=== PATIENT | male | born 1955 | race Caucasian/White ===

== ENCOUNTER 2018-05-06 11:17 | Inpatient (IN) | payer MEDICARE, OTHER ==
[2018-05-06] MEDS ORDERED: methylPREDNISolone SOD SUCC 125 MG/2 ML VIAL IVP ONE (11:21)
[2018-05-06] MEDS ORDERED: IPRATROPIUM/ALBUTEROL SULFATE 3 ML AMPUL.NEB NEB ONE ×2 (11:21→14:16)
[2018-05-06] MEDS ORDERED: FUROSEMIDE 40 MG/4 ML VIAL IVP ONE (11:26)
--- NOTE | 2018-05-06 11:32 | ED Physician Documentation ---
Dyspnea - HISTORIAN Historian: patient, paramedics - HPI Stated Complaint: shortness of breath Chief Complaint: Dyspnea Additional Information: Patient presents to ED via EMS from long-term with a 2 week history of malaise, weakness, productive cough and increasing shortness of breath. Patient has a history of COPD and schizophrenia. He wears 2-3 liters O2 daily. Duration: continues in ED Severity: moderate Exacerbated By: laying flat, coughing Associated Symptoms: chills, productive cough - ROS CONST: weakness EYES/ENT: none GI/: none NEURO/PSYCH: denies: headache MS/SKIN/LYMPH: none - PAST HX Lung Disease: COPD Cardiac Disease: CHF PE Risk Factors: none Surgeries/Procedures: none Allergies/Adverse Reactions: Allergies Allergy/AdvReac Type Severity Reaction Status Date / Time chlorpromazine Allergy Verified 05/06/18 12:01 [From Thorazine] ketorolac [From Toradol] Allergy Verified 05/06/18 12:01 loxapine [From Loxitane] Allergy Verified 05/06/18 12:01 Tetracyclines Allergy Verified 05/06/18 12:01 thioridazine [From Mellaril] Allergy Verified 05/06/18 12:01 thiothixene [From Navane] Allergy Verified 05/06/18 12:01 - SOCIAL HX Smoking History: cigarettes, greater than 1 pack/day Alcohol Use: none Drug Use: none - FAMILY HX Family History: none - VITAL SIGNS Vital Signs: Vital Signs Temp Pulse Resp BP Pulse Ox 142/92 06/09/14 12:30 - REVIEWED ASSESSMENTS Nursing Assessment Reviewed: Yes Vitals Reviewed: Yes Progress - Progress Progress: 1145 Discussed admission with [facility], no ICU beds available. Discussed with patient, [facility] He would prefer to stay here. Will try to improve respiratory status to admit here. If not, we will have to transfer to higher level of care. 1327 Patient currently on 12 liters oxygen with SaO2 99 % will try to wean O2. 1423 Patient on 6 liters nasal cannula with SaO2 96%. Breathing is much improved. Scattered wheezing bilaterally, will give another breathing treatment. [address] Rodriguez, he agrees with admission. Blood cultures pending - EKG/XRAY/CT Comments: sinus tachycardia 106 bpm ED Results Lab/Radiology - Radiology Radiology Impressions: Report Submission Date: May 06, 2018 11:43:25 AM CDT Patient Study Name: HIWOT MILLER Date: May 06, 2018 11:18:00 AM CDT Modality Type: DX Gender: M Description: CHEST 1VIEW : 55 Institution: [facility] Physician: LYNNE CABRALES AP chest Clinical history: Severe shortness of breath today. Findings: Examination of the chest and single AP view demonstrates pulmonary vascular congestion with confluent infiltrates perihilar regions suggesting edema. Chuck B-lines are seen in the lung bases. Cardiac silhouette is prominent. Monitor leads superimpose the chest. Impression: 1. Pulmonary edema and vascular congestion. 2. Left ventricular prominence. Electronically signed on May 06, 2018 11:43:25 AM CDT by: Gino Mary - Orders Orders: ED Orders Category Date Time Status Place IV Lock 1T Care 05/06/18 11:19 Ordered CHEST 1VIEW [RAD] Stat Exams 05/06/18 Ordered ABG WITH COOX Stat Lab 05/06/18 Uncollected BLOOD CULTURE Stat Lab 05/06/18 Ordered BNP [NT-proBNP] Stat Lab 05/06/18 Ordered CBC/PLATELET/DIFF Routine Lab 05/06/18 Ordered CMP Routine Lab 05/06/18 Ordered LACTATE Stat Lab 05/06/18 Ordered TROPONIN I (cTnI) Stat Lab 05/06/18 Ordered Furosemide [Lasix] Med 05/06/18 11:26 Once 40 mg IVP NOW ONE Ipratropium/Albuterol Sulfate [Duoneb] Med 05/06/18 11:21 Once 3 ml NEB NOW ONE methylPREDNISolone SOD SUCC [Solu-MEDROL] Med 05/06/18 11:21 Once 125 mg IVP NOW ONE EKG WITH COMPARISON Stat Ther 05/06/18 Ordered Dyspnea Physical Exam - EXAM General Appearance: moderate distress (tripod position), anxious EENT: DEMETRIUS Respiratory: prolonged expirations, accessory muscle use, decreased air move ment. No: speaks full sentences CVS: tachycardia Abdomen: non-tender. No: tenderness Skin: diaphoresis, pallor Extremities: no edema (+2 pitting lower extremity edema bilaterally to knee) Neuro/Psych: oriented x3, motor nml Discharge Clincal Impression: Acute on chronic respiratory failure Qualifiers: Respiratory failure complication: hypoxia and hypercapnia Qualified Code(s): J 96.21 - Acute and chronic respiratory failure with hypoxia Sepsis Qualifiers: Sepsis type: sepsis due to unspecified organism Qualified Code(s): A41.9 - Sepsis, unspecified organism Bilateral pneumonia Qualifiers: Pneumonia type: due to other aerobic Gram-negative bacteria Lung location: unspecified part of lung Qualified Code(s): J15.6 - Pneumonia due to other Gram- negative bacteria Acute heart failure Qualifiers: Heart failure type: unspecified Qualified Code(s): I50.9 - Heart failure, unspecified Condition: Fair Disposition: ADMITTED INPATIENT Decision to Admit: [id number] Date of Decison to Admit: 05/06/18 Decision Time: 14:30
[2018-05-06 11:48] LABS: eGFR (Non-African) > 60
[2018-05-06 11:49] LABS: MEAN CORPUSCULAR HEMOGLOBIN 30.5 pg (28.0-34.0)
[2018-05-06 11:52] LABS: MONOCYTES % 6 % (0-11); SEGMENTED NEUTROPHILS % 82 % (39-79)
[2018-05-06] MEDS ORDERED: LEVOFLOXACIN IN DEXTROSE 5 % 750 MG/150 ML PIGGYBACK IV ONE (11:52)
[2018-05-06] MEDS ORDERED: VANCOMYCIN HCL 1.25 GM in 0.9 % SODIUM CHLORIDE 500 ML IV ONE (11:52)
--- NOTE | 2018-05-06 12:01 | Diagnostic Imaging Report ---
LYNNE CABRALES [facility] [address] [facility] [address] [place], [place]. [address] Report Submission Date: May 06, 2018 11:43:25 AM CDT Patient Study Name: HIWOT MILLER Date: May 06, 2018 11:18:00 AM CDT Modality Type: DX Gender: M Description: CHEST 1VIEW : 55 Institution: [facility] Physician: LYNNE CABRALES AP chest Clinical history: Severe shortness of breath today. Findings: Examination of the chest and single AP view demonstrates pulmonary vascular congestion with confluent infiltrates perihilar regions suggesting edema. Chuck B-lines are seen in the lung bases. Cardiac silhouette is prominent. Monitor leads superimpose the chest. Impression: 1. Pulmonary edema and vascular congestion. 2. Left ventricular prominence. Electronically signed on May 06, 2018 11:43:25 AM CDT by: Gino WHITESIDE
[2018-05-06 15:26] VITALS: BMI 34.2
[2018-05-06] MEDS ORDERED: MAG HYDROX/ALUMINUM HYD/SIMETH 30 ML UDC PO PRN (15:52)
[2018-05-06] MEDS ORDERED: DOCUSATE SODIUM 100 MG CAPSULE PO PRN (15:52)
[2018-05-06] MEDS ORDERED: ONDANSETRON HCL/PF 4 MG/ 2ML VIAL IVP PRN (15:52)
[2018-05-06] MEDS ORDERED: OLANZapine 5 MG TABLET PO PRN (15:52)
[2018-05-06] MEDS ORDERED: BISACODYL 5 MG TABLET.DR PO PRN (15:52)
[2018-05-06] MEDS ORDERED: VANCOMYCIN PHARMACY TO DOSE IV SCH (16:00)
[2018-05-06] MEDS: VANCOMYCIN HCL 1 GM in 0.9 % SODIUM CHLORIDE 250 ML IV SCH ×2 (16:32→17:44)
[2018-05-06] MEDS: IPRATROPIUM/ALBUTEROL SULFATE 3 ML AMPUL.NEB NEB SCH ×2 (17:18→20:12)
[2018-05-06] MEDS: ENOXAPARIN SODIUM 40 MG/0.4 ML DISP.SYRIN SQ SCH (17:18)
[2018-05-06] MEDS: INSULIN REGULAR, HUMAN 100 UNIT/ML 3ML VIAL SQ SCH ×2 (17:20→20:20)
[2018-05-06] MEDS ORDERED: 0.9 % SODIUM CHLORIDE 250 ML IV ONE (17:29)
[2018-05-06] MEDS ORDERED: VANCOMYCIN HCL 1 GM VIAL IV ONE (17:30)
[2018-05-06] MEDS: HYDROcodone /APAP 5/325 1 EACH TABLET PO PRN (17:44)
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
[2018-05-06] MEDS: FUROSEMIDE 40 MG TABLET PO SCH (20:02)
[2018-05-06] MEDS: GABAPENTIN 300 MG CAPSULE PO SCH (20:13)
[2018-05-06] MEDS: BUDESONIDE 0.5MG/2ML AMPUL.NEB NEB SCH (20:13)
[2018-05-06] MEDS: CYCLOBENZAPRINE HCL 10 MG TABLET PO SCH (20:13)
[2018-05-06] MEDS: QUEtiapine FUMARATE 25 MG TABLET PO SCH ×2 (20:14)
[2018-05-06] MEDS: TEMAZEPAM 15 MG CAP PO SCH (20:14)
[2018-05-06] MEDS: methylPREDNISolone SOD SUCC 40 MG/ML VIAL IVP SCH (20:15)
[2018-05-06] MEDS: MONTELUKAST SODIUM 10 MG TABLET PO SCH (20:15)
[2018-05-06] MEDS: CARBAMAZEPINE 200 MG TABLET PO SCH (20:15)
[2018-05-06] MEDS: NICOTINE 14mg PATCH.TD24 TD SCH (20:52)
[2018-05-06] MEDS ORDERED: Non-Formulary 1 EACH PO SCH (21:00)
[2018-05-07] MEDS: HYDROcodone /APAP 5/325 1 EACH TABLET PO PRN ×3 (00:05→21:30)
[2018-05-07] MEDS ORDERED: 0.9 % SODIUM CHLORIDE 250 ML IV ONE (04:30)
[2018-05-07] MEDS ORDERED: VANCOMYCIN HCL 1 GM VIAL IV ONE (04:31)
[2018-05-07] MEDS: VANCOMYCIN HCL 1 GM in 0.9 % SODIUM CHLORIDE 250 ML IV SCH ×3 (04:41→21:15)
[2018-05-07 06:21] LABS: BASOPHILS % 0.9 (0.0-1.5); EOSINOPHILS % 0.9 % (0.0-6.8); MEAN CORPUSCULAR HEMOGLOBIN 30.2 pg (28.0-34.0); NEUTROPHILS # 13.3 # k/uL (1.4-7.7)
[2018-05-07] MEDS: FUROSEMIDE 40 MG TABLET PO SCH ×2 (06:38→14:54)
[2018-05-07] MEDS: methylPREDNISolone SOD SUCC 40 MG/ML VIAL IVP SCH ×3 (06:38→20:22)
[2018-05-07] MEDS: LEVOTHYROXINE SODIUM 88 MCG TABLET PO SCH (06:39)
[2018-05-07] MEDS: PANTOPRAZOLE SODIUM 40 MG TABLET.DR PO SCH (06:39)
[2018-05-07 06:50] LABS: eGFR (Non-African) > 60
[2018-05-07] MEDS: INSULIN REGULAR, HUMAN 100 UNIT/ML 3ML VIAL SQ SCH ×4 (07:23→21:29)
[2018-05-07 08:15] LABS: PH BG VENOUS 7.29 (7.32-7.43)
[2018-05-07] MEDS: LEVOFLOXACIN IN DEXTROSE 5 % 750 MG/150 ML PIGGYBACK IV SCH (08:50)
[2018-05-07] MEDS: ENOXAPARIN SODIUM 40 MG/0.4 ML DISP.SYRIN SQ SCH (08:51)
[2018-05-07] MEDS: PROPRANOLOL HCL 20 MG TABLET PO SCH ×3 (08:51→17:27)
[2018-05-07] MEDS: LISINOPRIL 10 MG TABLET PO SCH (08:51)
[2018-05-07] MEDS: NICOTINE 14mg PATCH.TD24 TD SCH (08:51)
[2018-05-07] MEDS: QUEtiapine FUMARATE 25 MG TABLET PO SCH ×3 (08:52→21:35)
[2018-05-07] MEDS: NAPROXEN 250 MG TABLET PO SCH ×2 (08:52→17:27)
[2018-05-07] MEDS: CARBAMAZEPINE 200 MG TABLET PO SCH ×2 (08:53→21:31)
[2018-05-07] MEDS: GABAPENTIN 300 MG CAPSULE PO SCH ×2 (08:53→21:29)
[2018-05-07] MEDS: BUDESONIDE 0.5MG/2ML AMPUL.NEB NEB SCH ×2 (09:35→20:26)
[2018-05-07] MEDS: IPRATROPIUM/ALBUTEROL SULFATE 3 ML AMPUL.NEB NEB SCH ×4 (09:35→20:33)
[2018-05-07] MEDS ORDERED: SODIUM CHLORIDE 0.9% 1 NASAL SPRAY BTL IEN PRN (18:06)
--- NOTE | 2018-05-07 19:12 | Inpatient Progress Note ---
Subjective - Required Recertification Statement I anticipate X number of days because-include discharge plan: 1 - Review of Systems Events since last encounter: Noe is feeling a little bit better today. He is not coughing quite as much. He is afebrile. His oxygen saturations are improved. He has not ambulated very much. He was encouraged by a visit from his sister today. General: Denies: Chills, Night Sweats HEENT: Denies: Head Aches Pulmonary: Dyspnea, Cough. Denies: Pleuritic Chest Pain Cardiovascular: Denies: Chest Pain Gastrointestinal: Denies: Nausea, Vomiting, Hematochezia Genitourinary: Denies: Dysuria, Frequency Musculoskeletal: Denies: Neck Pain, Shoulder Pain Neurological: Weakness, Change in Speech, Confusion Objective - Exam Vitals and I&O: Vital Signs Temp 98.2 F 05/07/18 18:00 Pulse 86 05/07/18 18:00 Resp 20 05/07/18 18:00 BP 153/92 05/07/18 18:00 Pulse Ox 96 05/07/18 18:00 Intake & Output 05/06/18 05/07/18 05/07/18 23:59 11:59 23:59 Intake Total 1200 720 Output Total 3050 3200 400 Balance -3049 -1999 320 Weight 102.058 kg Intake: Oral 1200 720 Output: Urine 3050 3200 400 Other: Voiding Method Urinal Urinal Urinal # Voids 3 2 # Bowel Movements 0 0 General: Alert, Oriented to Person, Oriented to Time, Discheveled HEENT: Atraumatic, PERRLA, EOMI Neck: Supple Lungs: Wheezes, Rales, Rhonchi, Stridor Cardiovascular: Regular rate Abdomen: Normal bowel sounds, Soft, No tenderness Extremities: No: No edema (3+ edema) Skin: Normal, [place], Warm Neurological: Normal speech Psych/Mental Status: Mental status NL. No: Intact Judgment - Results Results: Laboratory Results WBC 16.50 K/ul (4.00-12.00) H 05/07/18 06:00 RBC 4.66 M/ul (3.90-5.20) 05/07/18 06:00 Hgb 14.1 g/dL (12.0-18.0) 05/07/18 06:00 Hct 43.1 % (37.0-53.0) 05/07/18 06:00 MCV 93.0 fl (80.0-100.0) 05/07/18 06:00 MCH 30.2 pg (28.0-34.0) 05/07/18 06:00 MCHC 32.7 g/dL (30.0-36.0) 05/07/18 06:00 RDW 13.2 % (11.3-14.3) 05/07/18 06:00 Plt Count 280 K/mm3 (130-400) 05/07/18 06:00 Neut % (Auto) 80.4 % (39.0-79.0) H 05/07/18 06:00 Lymph % (Auto) 11.8 % (16.0-50.0) L 05/07/18 06:00 [place] % (Auto) 6.0 % (0.0-11.0) 05/07/18 06:00 Eos % (Auto) 0.9 % (0.0-6.8) 05/07/18 06:00 Baso % (Auto) 0.9 (0.0-1.5) 05/07/18 06:00 Neut # (Auto) 13.3 # k/uL (1.4-7.7) H 05/07/18 06:00 Lymph # (Auto) 1.9 # k/uL (0.6-4.0) 05/07/18 06:00 [place] # (Auto) 1.0 # k/uL (0.0-0.9) H 05/07/18 06:00 Eos # (Auto) 0.2 # k/uL (0.0-0.6) 05/07/18 06:00 Baso # (Auto) 0.2 # k/uL (0.0-0.5) 05/07/18 06:00 Seg Neutrophils % 82 % (39-79) H 05/06/18 11:25 Lymphocytes % 12 % (16-50) L 05/06/18 11:25 Monocytes % 6 % (0-11) 05/06/18 11:25 VBG pH 7.29 (7.32-7.43) L 05/06/18 11:45 VBG pCO2 at Pat Temp 53 mmHG (40-60) 05/06/18 11:45 VBG pO2 at Pat Temp 45 mmHg (30-55) 05/06/18 11:45 VBG HCO3 23 mmol/L (22-27) 05/06/18 11:45 VBG O2 Sat (Calc) 79 % (40-85) 05/06/18 11:45 VBG Base Excess -2 mmol/L (-2- +2) 05/06/18 11:45 Sodium 135 mmol/L (136-145) L 05/07/18 06:00 Potassium 4.0 mmol/L (3.5-5.1) 05/07/18 06:00 Chloride 95 mmol/L (98-107) L 05/07/18 06:00 Carbon Dioxide 28 mmol/L (22-30) 05/07/18 06:00 BUN 18 mg/dL (9-20) 05/07/18 06:00 Creatinine 0.73 mg/dL (0.66-1.25) 05/07/18 06:00 Estimated Creat Clear 149 05/07/18 06:00 Est GFR ( Amer) > 60 (60-) 05/07/18 06:00 Est GFR (Non-Af Amer) > 60 (60-) 05/07/18 06:00 Glucose 113 mg/dL (74-106) H 05/07/18 06:00 Lactate 1.8 U/L (0.7-2.1) 05/06/18 14:00 Calcium 8.5 mg/dL (8.4-10.2) 05/07/18 06:00 Total Bilirubin 0.3 mg/dL (0.2-1.3) 05/06/18 11:25 AST 59 U/L (15-46) H 05/06/18 11:25 ALT 42 U/L (13-69) 05/06/18 11:25 Alkaline Phosphatase 142 U/L (38-126) H 05/06/18 11:25 Troponin I 0.06 ng/mL (0.03-0.06) 05/06/18 11:25 NT-Pro-B Natriuret Pep 1969.2 pg/mL (15.0-125.0) H 05/06/18 11:25 Total Protein 10.6 g/dL (6.3-8.2) H 05/06/18 11:25 Albumin 5.8 g/dL (3.5-5.0) H 05/06/18 11:25 Assessment/Plan - Assessment/Plan (1) Acute heart failure Status: Acute Current Visit: Yes Qualifiers: Heart failure type: systolic Qualified Code(s): I50.21 - Acute systolic (congestive) heart failure Assessment: Improved (2) Acute on chronic respiratory failure Status: Acute Current Visit: Yes Qualifiers: Respiratory failure complication: hypoxia and hypercapnia Qualified Code(s): J96.21 - Acute and chronic respiratory failure with hypoxia; J96.22 - Acute and chronic respiratory failure with hypercapnia Assessment: Chronic and multifactorial. Plan: Continue current antibiotic therapy, await blood cultures, continue supplemental oxygen, nebulizer treatments (3) Schizophrenia Status: Acute Current Visit: Yes Assessment: Continue current psychiatric medications (4) Anxiety Status: Acute Current Visit: Yes Assessment: Continue current doses of Seroquel (5) Depression Status: Acute Current Visit: Yes Qualifiers: Depression Type: major depressive disorder Major depression recurrence: recurrent Active/Remission status: currently active Major depression episode severity: severe Psychotic features: with psychotic features Qualified Code(s): F33.3 - Major depressive disorder, recurrent, severe with psychotic symptoms (6) Hypertension Status: Acute Current Visit: Yes Qualifiers: Hypertension type: essential hypertension Qualified Code(s): I10 - Essent ial (primary) hypertension (7) Hyperlipidemia Status: Acute Current Visit: Yes Qualifiers: Hyperlipidemia type: pure hypercholesterolemia Qualified Code(s): E78.00 - Pure hypercholesterolemia, unspecified; E78.0 - Pure hypercholesterolemia (8) Bilateral pneumonia Status: Acute Current Visit: Yes Qualifiers: Pneumonia type: due to other aerobic Gram-negative bacteria Lung location: unspecified part of lung Qualified Code(s): J15.6 - Pneumonia due to other Gram-negative bacteria (9) Sepsis Status: Acute Current Visit: Yes Qualifiers: Sepsis type: sepsis due to unspecified organism Qualified Code(s): A41.9 - Sepsis, unspecified organism
[2018-05-07] MEDS: CYCLOBENZAPRINE HCL 10 MG TABLET PO SCH (21:29)
[2018-05-07] MEDS: TEMAZEPAM 15 MG CAP PO SCH (21:30)
[2018-05-07] MEDS: MONTELUKAST SODIUM 10 MG TABLET PO SCH (21:31)
[2018-05-07] MEDS: PATIENT OWN MED 1 EACH EACH PO SCH (21:33)
[2018-05-08] MEDS: methylPREDNISolone SOD SUCC 40 MG/ML VIAL IVP SCH ×3 (05:05→21:54)
[2018-05-08] MEDS: PANTOPRAZOLE SODIUM 40 MG TABLET.DR PO SCH (05:10)
[2018-05-08] MEDS: LEVOTHYROXINE SODIUM 88 MCG TABLET PO SCH (05:10)
[2018-05-08] MEDS: FUROSEMIDE 40 MG TABLET PO SCH ×2 (05:10→14:29)
[2018-05-08] MEDS: VANCOMYCIN HCL 1 GM in 0.9 % SODIUM CHLORIDE 250 ML IV SCH ×3 (05:10→22:01)
[2018-05-08] MEDS: HYDROcodone /APAP 5/325 1 EACH TABLET PO PRN ×2 (06:29→13:25)
[2018-05-08 07:03] LABS: MEAN CORPUSCULAR HEMOGLOBIN 30.3 pg (28.0-34.0)
[2018-05-08 07:14] LABS: eGFR (Non-African) > 60
--- NOTE | 2018-05-08 07:47 | Diagnostic Imaging Report ---
CLARE LAST [facility] [address] [facility] [address] [place], [place]. [address] Report Submission Date: May 08, 2018 7:30:56 AM CDT Patient Study Name: HIWOT MILLER Date: May 08, 2018 6:47:59 AM CDT Modality Type: DX Gender: M Description: CHEST 2VIEW : 55 Institution: [facility] Physician: CLARE LAST PA and lateral chest History: Cough PA and lateral chest dated May 08, 2018 is compared with May 06, 2018. Heart is borderline in size. Diffusely prominent interstitial markings are present bilaterally which may represent mild pulmonary venous congestion versus chronic interstitial lung disease. There is a small region of asymmetric atelectasis and/or infiltrate at the right lung base. There is no pleural effusion. Impression: Borderline heart size. Prominent interstitial marking diffusely bilaterally as described. Small region of atelectasis and/or infiltrate at the right lung base. Electronically signed on May 08, 2018 7:30:56 AM CDT by: Wandy WHITESIDE
[2018-05-08] MEDS: INSULIN REGULAR, HUMAN 100 UNIT/ML 3ML VIAL SQ SCH ×4 (07:51→21:54)
[2018-05-08] MEDS: NAPROXEN 250 MG TABLET PO SCH ×2 (07:57→18:04)
[2018-05-08] MEDS: NICOTINE 14mg PATCH.TD24 TD SCH (08:01)
[2018-05-08] MEDS: ENOXAPARIN SODIUM 40 MG/0.4 ML DISP.SYRIN SQ SCH (08:01)
[2018-05-08] MEDS: GABAPENTIN 300 MG CAPSULE PO SCH ×2 (08:01→21:23)
[2018-05-08] MEDS: PROPRANOLOL HCL 20 MG TABLET PO SCH ×3 (08:01→18:04)
[2018-05-08] MEDS: QUEtiapine FUMARATE 25 MG TABLET PO SCH ×3 (08:02→21:24)
[2018-05-08] MEDS: CARBAMAZEPINE 200 MG TABLET PO SCH ×2 (08:02→21:25)
[2018-05-08] MEDS: LISINOPRIL 10 MG TABLET PO SCH (08:06)
[2018-05-08] MEDS: IPRATROPIUM/ALBUTEROL SULFATE 3 ML AMPUL.NEB NEB SCH ×4 (09:00→21:57)
[2018-05-08] MEDS: BUDESONIDE 0.5MG/2ML AMPUL.NEB NEB SCH ×2 (09:00→21:55)
[2018-05-08] MEDS: LEVOFLOXACIN IN DEXTROSE 5 % 750 MG/150 ML PIGGYBACK IV SCH (09:24)
--- NOTE | 2018-05-08 12:01 | Inpatient Progress Note ---
Subjective - Required Recertification Statement I anticipate X number of days because-include discharge plan: 2 - Review of Systems Events since last encounter: Noe is still coughing quite a bit. His white count is down but only minimally and he remains on 6 LNC. He is spending most of his time on the edge of his bed. He is diuresing well. General: Chills, Night Sweats, Fatigue, Malaise HEENT: Denies: Head Aches Pulmonary: Dyspnea, Cough. Denies: Pleuritic Chest Pain Cardiovascular: Denies: Chest Pain, Palpitations Gastrointestinal: Denies: Nausea, Vomiting Genitourinary: Denies: Dysuria Musculoskeletal: Denies: Neck Pain, Shoulder Pain Neurological: Weakness. Denies: Change in Speech, Confusion Objective - Exam Vitals and I&O: Vital Signs Temp 97.5 F L 05/08/18 09:25 Pulse 90 05/08/18 09:25 Resp 20 05/08/18 09:25 BP 159/81 05/08/18 09:25 Pulse Ox 98 05/08/18 09:25 Intake & Output 05/07/18 05/07/18 05/08/18 11:59 23:59 11:59 Intake Total 1200 720 840 Output Total 3200 400 1600 Balance -1999 320 -760 Intake: Oral 1200 720 840 Output: Urine 3200 400 1600 Other: Voiding Method Urinal Urinal Urinal # Voids 2 2 # Bowel Movements 0 General: Alert, Oriented to Person, Oriented to Place, Oriented to Time HEENT: Atraumatic, PERRLA Neck: Supple, No JVD Lungs: Wheezes, Rales, Rhonchi, Prolonged Expiration Cardiovascular: Regular rate Abdomen: Normal bowel sounds, Soft, No tenderness, No hepatospenomegaly Extremities: No: No edema (3+ BLE) Neurological: Normal speech Psych/Mental Status: Mental status NL (flat) - Results Results: Laboratory Results WBC 16.10 K/ul (4.00-12.00) H 05/08/18 06:00 RBC 4.18 M/ul (3.90-5.20) 05/08/18 06:00 Hgb 12.7 g/dL (12.0-18.0) 05/08/18 06:00 Hct 38.6 % (37.0-53.0) 05/08/18 06:00 MCV 92.0 fl (80.0-100.0) 05/08/18 06:00 MCH 30.3 pg (28.0-34.0) 05/08/18 06:00 MCHC 32.8 g/dL (30.0-36.0) 05/08/18 06:00 RDW 12.8 % (11.3-14.3) 05/08/18 06:00 Plt Count 258 K/mm3 (130-400) 05/08/18 06:00 Neut % (Auto) 80.4 % (39.0-79.0) H 05/07/18 06:00 Lymph % (Auto) 11.8 % (16.0-50.0) L 05/07/18 06:00 [place] % (Auto) 6.0 % (0.0-11.0) 05/07/18 06:00 Eos % (Auto) 0.9 % (0.0-6.8) 05/07/18 06:00 Baso % (Auto) 0.9 (0.0-1.5) 05/07/18 06:00 Neut # (Auto) 13.3 # k/uL (1.4-7.7) H 05/07/18 06:00 Lymph # (Auto) 1.9 # k/uL (0.6-4.0) 05/07/18 06:00 [place] # (Auto) 1.0 # k/uL (0.0-0.9) H 05/07/18 06:00 Eos # (Auto) 0.2 # k/uL (0.0-0.6) 05/07/18 06:00 Baso # (Auto) 0.2 # k/uL (0.0-0.5) 05/07/18 06:00 Seg Neutrophils % 82 % (39-79) H 05/06/18 11:25 Lymphocytes % 12 % (16-50) L 05/06/18 11:25 Monocytes % 6 % (0-11) 05/06/18 11:25 VBG pH 7.29 (7.32-7.43) L 05/06/18 11:45 VBG pCO2 at Pat Temp 53 mmHG (40-60) 05/06/18 11:45 VBG pO2 at Pat Temp 45 mmHg (30-55) 05/06/18 11:45 VBG HCO3 23 mmol/L (22-27) 05/06/18 11:45 VBG O2 Sat (Calc) 79 % (40-85) 05/06/18 11:45 VBG Base Excess -2 mmol/L (-2- +2) 05/06/18 11:45 Sodium 133 mmol/L (136-145) L 05/08/18 06:00 Potassium 4.3 mmol/L (3.5-5.1) 05/08/18 06:00 Chloride 93 mmol/L (98-107) L 05/08/18 06:00 Carbon Dioxide 30 mmol/L (22-30) 05/08/18 06:00 BUN 28 mg/dL (9-20) H 05/08/18 06:00 Creatinine 0.73 mg/dL (0.66-1.25) 05/08/18 06:00 Estimated Creat Clear 149 05/08/18 06:00 Est GFR ( Amer) > 60 (60-) 05/08/18 06:00 Est GFR (Non-Af Amer) > 60 (60-) 05/08/18 06:00 Glucose 114 mg/dL (74-106) H 05/08/18 06:00 Lactate 1.8 U/L (0.7-2.1) 05/06/18 14:00 Calcium 8.0 mg/dL (8.4-10.2) L 05/08/18 06:00 Total Bilirubin < 0.1 mg/dL (0.2-1.3) L 05/08/18 06:00 AST 36 U/L (15-46) 05/08/18 06:00 ALT 43 U/L (13-69) 05/08/18 06:00 Alkaline Phosphatase 75 U/L (38-126) 05/08/18 06:00 Troponin I 0.06 ng/mL (0.03-0.06) 05/06/18 11:25 NT-Pro-B Natriuret Pep 1969.2 pg/mL (15.0-125.0) H 05/06/18 11:25 Total Protein 6.3 g/dL (6.3-8.2) 05/08/18 06:00 Albumin 3.3 g/dL (3.5-5.0) L 05/08/18 06:00 Assessment/Plan - Assessment/Plan (1) Acute heart failure Status: Acute Current Visit: Yes Qualifiers: Heart failure type: systolic Qualified Code(s): I50.21 - Acute systolic (congestive) heart failure Assessment: Still diuresing well (2) Acute on chronic respiratory failure Status: Acute Current Visit: Yes Qualifiers: Respiratory failure complication: hypoxia and hypercapnia Qualified Code(s): J96.21 - Acute and chronic respiratory failure with hypoxia; J96.22 - Acute and chronic respiratory failure with hypercapnia Assessment: Continue nebulizer treatments, steroids (3) Schizophrenia Status: Acute Current Visit: Yes Assessment: Chronic, stable (4) Anxiety Status: Acute Current Visit: Yes Assessment: Continue current medications (5) Depression Status: Acute Current Visit: Yes Qualifiers: Depression Type: major depressive disorder Major depression recurrence: recurrent Active/Remission status: currently active Major depression episode severity: severe Psychotic features: with psychotic features Qualified Code(s): F33.3 - Major depressive disorder, recurrent, severe with psychotic symptoms Assessment: Stable (6) Hypertension Status: Acute Current Visit: Yes Qualifiers: Hypertension type: essential hypertension Qualified Code(s): I10 - Essential (primary) hypertension Assessment: Well controlled (7) Hyperlipidemia Status: Acute Current Visit: Yes Qualifiers: Hyperlipidemia type: pure hypercholesterolemia Qualified Code(s): E78.00 - Pure hypercholesterolemia, unspecified; E78.0 - Pure hypercholesterolemia (8) Bilateral pneumonia Status: Acute Current Visit: Yes Qualifiers: Pneumonia type: due to other aerobic Gram-negative bacteria Lung location: unspecified part of lung Qualified Code(s): J15.6 - Pneumonia due to other Gram-negative bacteria Assessment: Continue current antibiotics Plan: Will have PT eval today to see if we can get him up and walking. (9) Sepsis Status: Acute Current Visit: Yes Qualifiers: Sepsis type: sepsis due to unspecified organism Qualified Code(s): A41.9 - Sepsis, unspecified organism
[2018-05-08] MEDS ORDERED: BENZOCAINE/MENTHOL 1 EACH LOZENGE MM PRN (13:00)
[2018-05-08] MEDS: CYCLOBENZAPRINE HCL 10 MG TABLET PO SCH (21:23)
[2018-05-08] MEDS: MONTELUKAST SODIUM 10 MG TABLET PO SCH (21:25)
[2018-05-08] MEDS: PATIENT OWN MED 1 EACH EACH PO SCH (21:27)
[2018-05-08] MEDS: TEMAZEPAM 15 MG CAP PO SCH (21:33)
[2018-05-09] MEDS: HYDROcodone /APAP 5/325 1 EACH TABLET PO PRN ×2 (01:21→10:52)
[2018-05-09] MEDS: methylPREDNISolone SOD SUCC 40 MG/ML VIAL IVP SCH ×2 (05:25→12:26)
[2018-05-09] MEDS: VANCOMYCIN HCL 1 GM in 0.9 % SODIUM CHLORIDE 250 ML IV SCH ×2 (05:25→12:27)
[2018-05-09] MEDS: LEVOTHYROXINE SODIUM 88 MCG TABLET PO SCH (05:26)
[2018-05-09] MEDS: FUROSEMIDE 40 MG TABLET PO SCH (05:26)
[2018-05-09] MEDS: PANTOPRAZOLE SODIUM 40 MG TABLET.DR PO SCH (05:26)
[2018-05-09] MEDS: NAPROXEN 250 MG TABLET PO SCH (07:41)
[2018-05-09] MEDS: INSULIN REGULAR, HUMAN 100 UNIT/ML 3ML VIAL SQ SCH ×2 (07:46→12:29)
--- NOTE | 2018-05-09 08:24 | Discharge Summary ---
Discharge Summary - Discharge Sumary Date: 05/09/18 History of Present Illness: Admission date 05/06/18 Discharge date 05/09/18 This is a 63 year old male who resides at [facility] who presented to the ER with c/o increased shortness of breath over the past few days. He is a smoker and has a history of COPD and asthma. In addition, he recently had oral furosemide added to his regimen. He has been coughing quite a bit, and also has been having some problems with increased swelling in his lower extremities. His BNP is markedly elevated at 1.9K+, and CXR suggests vascular overload. Condition at Discharge: Stable Home Medications: Ambulatory Orders Medication Instructions Recorded Acetaminophen [Tylenol] 650 mg PO BLHS 05/06/18 Carbamazepine [Tegretol Xr] 300 mg PO BID 05/06/18 Cariprazine HCl [Vraylar] 1.5 mg PO HS 05/06/18 Carisoprodol [Soma] 250 mg PO BID PRN 05/06/18 Cyclobenzaprine HCl [Flexeril] 10 mg PO HS 05/06/18 Fluticasone Propionate 110 Mcg 1 puff IH BID 05/06/18 [Flovent Hfa] Furosemide [Lasix] 20 mg PO DAILY 05/06/18 Gabapentin [Neurontin] 300 mg PO 0900 05/06/18 Gabapentin [Neurontin] 300 mg PO 2100 05/06/18 Ipratropium/Albuterol Sulfate 1 puff IH [id number] 05/06/18 [Combivent Respimat] Levothyroxine Sodium [Synthroid] 88 mcg PO 0700 05/06/18 Lisinopril [Zestril] 20 mg PO DAILY 05/06/18 Lovastatin 40 mg PO CMEAL 05/06/18 Magnesium Hydroxide [Milk of 2,400 mg PO DAILY PRN 05/06/18 Magnes[place]] Montelukast Sodium [Singulair] 10 mg PO HS 05/06/18 Multivitamin [Zoo Chews] 1 each PO DAILY 05/06/18 Naproxen [Naprosyn] 500 mg PO BS 05/06/18 Omeprazole 40 mg PO ACB 05/06/18 Propranolol HCl [Inderal] [place] [id number] 05/06/18 Quetiapine Fumarate [Seroquel] 50 mg PO 912 05/06/18 Quetiapine Fumarate [Seroquel] 300 mg PO HS 05/06/18 Sodium Chloride [Saline Nasal 2 sprays NS Q2H PRN 05/06/18 [place]] Temazepam [Restoril] 15 mg PO HS 05/06/18 Tramadol HCl [Ultram] 50 mg PO HS 05/06/18 Consultations this Visit: Other (PT/OT) Procedures this Visit: None Allergies/Adverse Reactions: Allergies Allergy/AdvReac Type Severity Reaction Status Date / Time chlorpromazine Allergy Verified 05/06/18 12:01 [From Thorazine] ketorolac [From Toradol] Allergy Verified 05/06/18 12:01 loxapine [From Loxitane] Allergy Verified 05/06/18 12:01 Tetracyclines Allergy Verified 05/06/18 12:01 thioridazine [From Mellaril] Allergy Verified 05/06/18 12:01 thiothixene [From Navane] Allergy Verified 05/06/18 12:01 Patient Problems: Current Active Problems Problem Status Onset Acute heart failure Acute Acute on chronic respiratory failure Acute Anxiety Acute Bilateral pneumonia Acute Depression Acute Hyperlipidemia Acute Hypertension Acute Schizophrenia Acute Sepsis Acute Hospital Course: Patient was admitted with pneumonia and CHF, complicated by COPD and continued smoking. He was noted to be in CHF as well as having pneumonia. He was started on IV rocephin and Azithromycin and lasix at 40 mg IV q12. He diuresed fairly well. He is discharged back to [place] with the addition of Lasix 40 mg daily and potassium 20 meq po qd.
[2018-05-09] MEDS: NICOTINE 14mg PATCH.TD24 TD SCH (08:52)
[2018-05-09] MEDS: PROPRANOLOL HCL 20 MG TABLET PO SCH ×2 (08:53→12:39)
[2018-05-09] MEDS: ENOXAPARIN SODIUM 40 MG/0.4 ML DISP.SYRIN SQ SCH (08:54)
[2018-05-09] MEDS: GABAPENTIN 300 MG CAPSULE PO SCH (08:54)
[2018-05-09] MEDS: LISINOPRIL 10 MG TABLET PO SCH (08:55)
[2018-05-09] MEDS: QUEtiapine FUMARATE 25 MG TABLET PO SCH (08:55)
[2018-05-09] MEDS: CARBAMAZEPINE 200 MG TABLET PO SCH (08:55)
[2018-05-09] MEDS: LEVOFLOXACIN IN DEXTROSE 5 % 750 MG/150 ML PIGGYBACK IV SCH (09:06)
[2018-05-09] MEDS: IPRATROPIUM/ALBUTEROL SULFATE 3 ML AMPUL.NEB NEB SCH ×2 (09:07→12:29)
[2018-05-09] MEDS: BUDESONIDE 0.5MG/2ML AMPUL.NEB NEB SCH (09:40)
[2018-05-09 13:27] VITALS: BP 167/69
== END 2018-05-09 14:00 | DRG 177 ==
LOC: ED 11:17 → SOUTH 14:47
PROVIDERS: ADMIT Family Medicine; ATTEND Family Medicine
DX: J15.6 Pneumonia due to other Gram-negative bacteria (principal); A41.9 Sepsis, unspecified organism; J96.21 Acute and chronic respiratory failure with hypoxia; I50.9 Heart failure, unspecified; J44.9 Chronic obstructive pulmonary disease, unspecified; I10 Essential (primary) hypertension; F20.9 Schizophrenia, unspecified; R53.1 Weakness; M53.81 Other specified dorsopathies, occipito-atlanto-axial region; E78.00 Pure hypercholesterolemia, unspecified; F32.9 Major depressive disorder, single episode, unspecified; F41.9 Anxiety disorder, unspecified; F17.210 Nicotine dependence, cigarettes, uncomplicated
CPT/HCPCS: 36415; 36600; 71045; 71046; 80048; 80053; 82805; 83605; 83880; 84484; 85025; 85027; 87040; 93005; 94640; 94760; 96365; 96375; 97161; 99284; A9270; J1030; J1650; J1815; J1940; J2930; J3370; J7050; J7060; J7626; 82803; 99222; 99231; 99238; J2920; S1016

== ENCOUNTER 2018-10-24 23:58 | Inpatient (IN) | payer MEDICARE, OTHER ==
[2018-10-25] MEDS ORDERED: 0.9 % SODIUM CHLORIDE 500 ML IV ONE (00:09)
--- NOTE | 2018-10-25 00:52 | ED Physician Documentation ---
General Adult - HISTORIAN Historian: patient - HPI Stated Complaint: low Na level Chief Complaint: General Adult Onset: hours Timing: still present Severity: moderate Further Comments: yes (Pt is a 63 yo male [facility] pt with hyponatremia on lab tests early today. Per report his Vt=829 today and had been trending down for the past several days. Pt sent to ER for correction of hyponatremia. Pt has seizure d/o. Hyponatremia can precipitate seizure, karyn. in someone with seizure d/o.) - ROS CONST: other ("ache all over" chronically) EYES/ENT: none CVS/RESP: shortness of breath (chronic) GI/: none MS/SKIN/LYMPH: none - PAST HX Past History: other (CHF, hx pneumonia, paranoid schizophrenia, seizures, HTN, Asthma, Hypothyroidism, HLD, COPD, GERD, Depression/anxiety, necrosis of hip.) Allergies/Adverse Reactions: Allergies Allergy/AdvReac Type Severity Reaction Status Date / Time chlorpromazine Allergy Verified 05/06/18 12:01 [From Thorazine] ketorolac [From Toradol] Allergy Verified 05/06/18 12:01 loxapine [From Loxitane] Allergy Verified 05/06/18 12:01 Tetracyclines Allergy Verified 05/06/18 12:01 thioridazine [From Mellaril] Allergy Verified 05/06/18 12:01 thiothixene [From Navane] Allergy Verified 05/06/18 12:01 Home Medications: Ambulatory Orders Medication Instructions Recorded Acetaminophen [Tylenol] 650 mg PO HS 05/06/18 Carbamazepine [Tegretol Xr] 600 mg PO BID 05/06/18 Cariprazine HCl [Vraylar] 1.5 mg PO HS 05/06/18 Gabapentin [Neurontin] 300 mg PO BID 05/06/18 Ipratropium/Albuterol Sulfate 1 puff [id number] 05/06/18 [Combivent Respimat] Levothyroxine Sodium [Synthroid] 88 mcg PO 0700 05/06/18 Lisinopril [Zestril] 20 mg PO BID 05/06/18 Lovastatin 40 mg PO CMEAL 05/06/18 Montelukast Sodium [Singulair] 10 mg PO HS 05/06/18 Multivitamin [Zoo Chews] 1 each PO DAILY 05/06/18 Naproxen [Naprosyn] 500 mg PO HS 05/06/18 Propranolol HCl [Inderal] 60 mg PO TID 05/06/18 Quetiapine Fumarate [Seroquel] 50 mg PO Q12 05/06/18 Quetiapine Fumarate [Seroquel] 300 mg PO HS 05/06/18 Sodium Chloride [Saline Nasal 2 sprays NS Q2H PRN 05/06/18 [place]] Temazepam [Restoril] 15 mg PO HS 05/06/18 Tramadol HCl [Ultram] 50 mg PO Q12 05/06/18 Albuterol Sulfate [Albuterol 8.5 gm IH QID 10/25/18 Sulfate Hfa] Aspirin [Zora] 1 tab PO DAILY 10/25/18 Budesonide/Formoterol Fumarate 2 puff INH BID 10/25/18 [Symbicort 160-4.5 Mcg Inhaler] Finasteride [Proscar] 1 tab PO HS 10/25/18 Hydrochlorothiazide 1 tab PO DAILY 10/25/18 Pantoprazole Sodium [Protonix] 1 tab PO DAILY 10/25/18 Potassium Chloride [Klor-Con M20] 40 meq PO DAILY 10/25/18 Tamsulosin HCl 1 cap PO DAILY 10/25/18 - SOCIAL HX Smoking History: quit greater than 1 year Alcohol Use: none Drug Use: none - FAMILY HX Family History: No - VITAL SIGNS Vital Signs: Vital Signs Temp Pulse Resp BP Pulse Ox 96.5 F L 59 L 16 168/68 98 10/24/18 23:58 10/24/18 23:58 10/24/18 23:58 10/24/18 23:58 10/24/18 23:58 - REVIEWED ASSESSMENTS Nursing Assessment Reviewed: Yes Vitals Reviewed: Yes Progress - Progress Progress: CXR: Findings: Lung martinez are hyperinflated. Pulmonary vascular congestion has resolved. A few increased markings in the lung bases are present but improved. There is no hilar or mediastinal mass. No lesions bony thorax is identified Impression: Emphysema Congestive heart failure changes have resolved. NS 500 cc IVF then NS at 100 cc/hr. Lasix 40 mg IV Admit to Dr. Roe. ED Results Lab/Radiology - Orders Orders: ED Orders Category Date Time Status Place IV Lock 1T Care 10/25/18 00:09 Active CHEST 1VIEW [RAD] Stat Exams 10/25/18 Ordered BNP [NTBNP] Stat Lab 10/25/18 00:30 Received CBC/PLATELET/DIFF Routine Lab 10/25/18 00:30 Received CKMB Stat Lab 10/25/18 00:30 Received CMP Routine Lab 10/25/18 00:30 Received CREATINE KINASE Routine Lab 10/25/18 00:30 Received TROPONIN I Stat Lab 10/25/18 00:30 Received UA [URINALYSIS] Routine Lab 10/25/18 00:30 Received 0.9 % Sodium Chloride [Normal Saline] 500 ml Med 10/25/18 00:09 Active IV NOW EKG WITH COMPARISON Stat Ther 10/25/18 Ordered General Adult Physical Exam - PHYSICAL EXAM GENERAL APPEARANCE: mild distress EENT: pharynx normal NECK: normal inspection, supple RESPIRATORY: no resp distress, chest non-tender, other (distant breath sounds) CVS: reg rate & rhythm, heart sounds normal ABDOMEN: soft, no organomegaly, normal bowel sounds BACK: normal inspection, no CVA tenderness SKIN: warm/dry, normal color EXTREMITIES: non-tender, normal range of motion, edema (trace b/l) NEURO: motor nml, sensation nml, other (baseline ms) Discharge Clincal Impression: Hyponatremia CHF (congestive heart failure) Qualifiers: Heart failure type: unspecified Heart failure chronicity: unspecified Qualified Code(s): I50.9 - Heart failure, unspecified Referrals: Reji Loyd [REFERRING] - Condition: Stable Disposition: ADMITTED INPATIENT Decision to Admit: NO Decision Time: 01:34
[2018-10-25] MEDS ORDERED: FUROSEMIDE 40 MG/4 ML VIAL IVP ONE (01:29)
[2018-10-25] MEDS ORDERED: 0.9 % SODIUM CHLORIDE 1,000 ML IV SCH (01:30)
[2018-10-25] MEDS ORDERED: 0.9 % SODIUM CHLORIDE 1,000 ML IV ONE (02:01)
[2018-10-25] MEDS ORDERED: QUEtiapine FUMARATE 25 MG TABLET PO SCH ×2 (02:07→21:00)
[2018-10-25] MEDS ORDERED: SODIUM CHLORIDE 0.9% 1 NASAL SPRAY BTL IEN PRN (02:07)
[2018-10-25] MEDS: 0.9 % SODIUM CHLORIDE 1,000 ML IV SCH ×3 (03:03→22:35)
[2018-10-25] MEDS: IPRATROPIUM/ALBUTEROL SULFATE 3 ML AMPUL.NEB NEB PRN ×3 (04:23→20:15)
[2018-10-25 05:48] VITALS: BMI 36.0
[2018-10-25 06:51] LABS: eGFR (Non-African) > 60
[2018-10-25 06:52] LABS: BASOPHILS % 0.5 % (0.0-1.5); NEUTROPHILS # 5.1 # k/uL (1.4-7.7)
[2018-10-25 06:56] LABS: eGFR (Non-African) > 60
[2018-10-25 07:02] LABS: BASOPHILS % 0.4 % (0.0-1.5); NEUTROPHILS # 5.5 # k/uL (1.4-7.7)
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
[2018-10-25] MEDS: LEVOTHYROXINE SODIUM 88 MCG TABLET PO SCH (07:41)
--- NOTE | 2018-10-25 08:08 | Diagnostic Imaging Report ---
SONALI RAZO [facility] [id number] [facility] [address] [place] [address]. [id number] Report Submission Date: Oct 25, 2018 1:03:02 AM CDT Patient Study Name: HIWOT MILLER Date: Oct 25, 2018 12:36:00 AM CDT Modality Type: DX Gender: M Description: CHEST 1VIEW : 55 Institution: [facility] Physician: SONALI RAZO Ap portable upright radiographs of the chest Clinical history: Short of breath Comparison May 08, 2018 Technique: anterior /posterior portable upright Findings: Lung martinez are hyperinflated. Pulmonary vascular congestion has resolved. A few increased markings in the lung bases are present but improved. There is no hilar or mediastinal mass. No lesions bony thorax is identified Impression: Emphysema Congestive heart failure changes have resolved Electronically signed on Oct 25, 2018 1:03:02 AM CDT by: Tab WHITESIDE
[2018-10-25] MEDS: TAMSULOSIN HCL 0.4 MG CAP.ER.24H PO SCH (08:47)
[2018-10-25] MEDS: carBAMazepine 200 MG TABLET PO SCH ×2 (08:47→20:04)
[2018-10-25] MEDS: GABAPENTIN 300 MG CAPSULE PO SCH ×2 (08:47→20:05)
[2018-10-25] MEDS: hydroCHLOROthiazide 25 MG TABLET PO SCH (08:48)
[2018-10-25] MEDS: QUEtiapine FUMARATE 25 MG TABLET PO SCH ×2 (08:48→14:44)
[2018-10-25] MEDS: ASPIRIN 81 MG CHEW TAB PO SCH (08:48)
[2018-10-25] MEDS: PROPRANOLOL HCL 20 MG TABLET PO SCH ×3 (08:49→17:35)
[2018-10-25] MEDS: LISINOPRIL 10 MG TABLET PO SCH ×2 (08:49→20:07)
[2018-10-25] MEDS: POTASSIUM CHLORIDE 20 MEQ TABLET.ER PO SCH (08:49)
[2018-10-25] MEDS: ACETAMINOPHEN 325 MG TABLET PO PRN ×3 (08:50→20:07)
[2018-10-25] MEDS: ENOXAPARIN SODIUM 40 MG/0.4 ML DISP.SYRIN SQ SCH (08:51)
[2018-10-25] MEDS: FLUTICASONE/SALMETEROL 250-50 INHALER IH SCH ×2 (08:52→20:06)
[2018-10-25] MEDS ORDERED: PROPRANOLOL HCL 20 MG TABLET PO SCH (09:00)
[2018-10-25] MEDS: ALBUTEROL 90MCG/PUFF INHALER IH SCH ×4 (09:03→20:05)
[2018-10-25] MEDS: PANTOPRAZOLE SODIUM 40 MG TABLET.DR PO SCH (09:04)
[2018-10-25 09:47] LABS: APPEARANCE,URINE CLOUDY (CLEAR); COLOR,URINE YELLOW (YELLOW); OCCULT BLOOD,URINE TRACE-INTACT (NEGATIVE); UROBILINOGEN URINE 0.2 Eu (0.2-1.0)
--- NOTE | 2018-10-25 14:33 | Diagnostic Imaging Report ---
MARI VITALE [facility] [id number] Pending Sale To [facility] [address] [place], [place]. [address] Report Submission Date: Oct 25, 2018 2:29:57 PM CDT Patient Study Name: MARY MILLER Date: Oct 25, 2018 1:57:11 PM CDT Modality Type: CT\SR Gender: M Description: CT CHEST W/ CONTRAST : 55 Institution: [facility] Physician: MARI VITALE Exam: CT of the chest with contrast. History: Hyponatremia. Axial images through the thorax after IV infusion of 90 cc Omnipaque 350 is submitted along with sagittal and coronal reformatted images. Interstitial emphysematous changes throughout both lung martinez is noted. A 9.2 mm noncalcified nodule in the middle lobe is noted. A 7.6 mm spiculated nodular density in the right lower lobe posteriorly is noted. No mary consolidation or effusion is seen. The thoracic aorta is of normal caliber. The thoracic aorta is of normal caliber and associated with atherosclerotic plaque. No enhancement at the origin of the left common carotid artery at its origin is noted which may represent occlusion. The mainstem pulmonary artery is of normal caliber. No significant mediastinal or axillary adenopathy is noted. No mary abnormality in the upper abdomen is noted. Mild degenerate changes in the thoracic spine are noted. A Lipomatous lesion in a mid thoracic vertebral body is noted. Impression: 9.2 mm nodule in the middle lobe and 7.6 mm spiculated nodule in the posterior right lower lobe are identified. Follow-up is recommended. Findings suggestive of an occluded common carotid artery at its origin at the thoracic aorta is noted. No significant mediastinal or axillary adenopathy is identified. Electronically signed on Oct 25, 2018 2:29:57 PM CDT by: Jono WHITESIDE
[2018-10-25] MEDS ORDERED: MONTELUKAST SODIUM 10 MG TABLET PO SCH (21:00)
[2018-10-25] MEDS ORDERED: TEMAZEPAM 15 MG CAP PO SCH (21:00)
[2018-10-25] MEDS ORDERED: FINASTERIDE 5 MG TABLET PO SCH (21:00)
[2018-10-25] MEDS ORDERED: ATORVASTATIN CALCIUM 10 MG TABLET PO SCH (21:00)
[2018-10-25] MEDS ORDERED: ACETAMINOPHEN 325 MG TABLET PO SCH (21:00)
[2018-10-26] MEDS: IPRATROPIUM/ALBUTEROL SULFATE 3 ML AMPUL.NEB NEB PRN ×2 (01:23→08:30)
[2018-10-26] MEDS: ACETAMINOPHEN 325 MG TABLET PO PRN ×2 (01:23→08:22)
[2018-10-26] MEDS: PANTOPRAZOLE SODIUM 40 MG TABLET.DR PO SCH (05:02)
[2018-10-26] MEDS: LEVOTHYROXINE SODIUM 88 MCG TABLET PO SCH (05:02)
[2018-10-26 06:04] LABS: eGFR (Non-African) > 60
[2018-10-26 06:05] LABS: BASOPHILS % 0.5 % (0.0-1.5); NEUTROPHILS # 4.4 # k/uL (1.4-7.7)
[2018-10-26] MEDS: 0.9 % SODIUM CHLORIDE 1,000 ML IV SCH (07:49)
[2018-10-26] MEDS: PROPRANOLOL HCL 20 MG TABLET PO SCH (08:21)
[2018-10-26] MEDS: ASPIRIN 81 MG CHEW TAB PO SCH (08:21)
[2018-10-26] MEDS: LISINOPRIL 10 MG TABLET PO SCH (08:21)
[2018-10-26] MEDS: hydroCHLOROthiazide 25 MG TABLET PO SCH (08:21)
[2018-10-26] MEDS: carBAMazepine 200 MG TABLET PO SCH (08:21)
--- NOTE | 2018-10-26 08:21 | Discharge Summary ---
Discharge Summary - Discharge [facility] Admission Date: 10/24/18 Discharge Date: 10/26/18 Discharge To: [facility] History of Present Illness: Patient resides at [facility]. On 09-12-18 he had a normal sodium of 138. For some reason, lab was redrawn 09-19 and it was 131. Then on 10-03 it was 128. Last night it was noted to be 115 and he was sent to [facility]. Patient says he was at [facility] until about 5 days ago (nursing says it was 09-10) with COPD exacerbation (per [facility] nursing). He has been feeling ok except his breathing. I called patient's PCP (DR. Booker of the [facility]) to see if any work up has been done. She told me he has seen nephrology for this and was to be on fluid restrictions but has refused this. She kept referencing his traumatic brain injury --- I do not see any record of this and the nurses at [facility] can find no evidence of it either.) I suspect she is thinking of the wrong patient. Review of [facility] records --- no mention of Na was made - Na there was 125. He was admitted there with CP and COPD exacerbation. Cardiac enzymes negative. Treated with prednisone and zithromax and breathing treatments. He was discharged the day after admission feeling much better. BNP was 1760. Condition at Discharge: Stable Home Medications: Ambulatory Orders Medication Instructions Recorded Acetaminophen [Tylenol] 650 mg PO HS 05/06/18 Carbamazepine [Tegretol Xr] 600 mg PO BID 05/06/18 Cariprazine HCl [Vraylar] 1.5 mg PO HS 05/06/18 Gabapentin [Neurontin] 300 mg PO BID 05/06/18 Ipratropium/Albuterol Sulfate 1 puff [id number] 05/06/18 [Combivent Respimat] Levothyroxine Sodium [Synthroid] 88 mcg PO 0700 05/06/18 Lisinopril [Zestril] 20 mg PO BID 05/06/18 Lovastatin 40 mg PO CMEAL 05/06/18 Montelukast Sodium [Singulair] 10 mg PO HS 05/06/18 Multivitamin [Zoo Chews] 1 each PO DAILY 05/06/18 Naproxen [Naprosyn] 500 mg PO HS 05/06/18 Quetiapine Fumarate [Seroquel] 50 mg PO Q12 05/06/18 Quetiapine Fumarate [Seroquel] 300 mg PO HS 05/06/18 Sodium Chloride [Saline Nasal 2 sprays NS Q2H PRN 05/06/18 Gleason] Temazepam [Restoril] 15 mg PO HS 05/06/18 Tramadol HCl [Ultram] 50 mg PO Q12 05/06/18 Albuterol Sulfate [Albuterol 8.5 gm IH QID 10/25/18 Sulfate Hfa] Aspirin [Zora] 1 tab PO DAILY 10/25/18 Budesonide/Formoterol Fumarate 2 puff INH BID 10/25/18 [Symbicort 160-4.5 Mcg Inhaler] Finasteride [Proscar] 1 tab PO HS 10/25/18 Pantoprazole Sodium [Protonix] 1 tab PO DAILY 10/25/18 Potassium Chloride [Klor-Con M20] 40 meq PO DAILY 10/25/18 Propranolol HCl [Inderal] 40 mg PO TID #0 10/25/18 Tamsulosin HCl 1 cap PO DAILY 10/25/18 Consultations this Visit: None Procedures this Visit: None Allergies/Adverse Reactions: Allergies Allergy/AdvReac Type Severity Reaction Status Date / Time chlorpromazine Allergy Verified 05/06/18 12:01 [From Thorazine] ketorolac [From Toradol] Allergy Verified 05/06/18 12:01 loxapine [From Loxitane] Allergy Verified 05/06/18 12:01 Tetracyclines Allergy Verified 05/06/18 12:01 thioridazine [From Mellaril] Allergy Verified 05/06/18 12:01 thiothixene [From Navane] Allergy Verified 05/06/18 12:01 Patient Problems: Current Active Problems Problem Status Onset CHF (congestive heart failure) Acute Elevated brain natriuretic peptide (BNP) level Acute Hyponatremia Acute Discharge Summary: Patient was admitted with hyponatremia. Started on IV NS. Tolerated it well. Sodium increased to 125 (had been 115 at [facility]). CT of chest showed 9.2 mm RML nodule and 7.6 mm RLL spiculated mass. 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 [facility] staff is informed and will work to get him set up with pulmonary for work up. Urine sodium and serum osm still pending. Patient agrees to a 1500 cc fluid restriction on discharge. Hospital Course: Discharge Dx: hyponatremia;. R lung mass; R lung nodule. COPD
[2018-10-26] MEDS: QUEtiapine FUMARATE 25 MG TABLET PO SCH (08:22)
[2018-10-26] MEDS: POTASSIUM CHLORIDE 20 MEQ TABLET.ER PO SCH (08:22)
[2018-10-26] MEDS: TAMSULOSIN HCL 0.4 MG CAP.ER.24H PO SCH (08:22)
[2018-10-26] MEDS: GABAPENTIN 300 MG CAPSULE PO SCH (08:22)
[2018-10-26] MEDS: ALBUTEROL 90MCG/PUFF INHALER IH SCH (08:24)
[2018-10-26] MEDS: ENOXAPARIN SODIUM 40 MG/0.4 ML DISP.SYRIN SQ SCH (08:26)
[2018-10-26] MEDS: FLUTICASONE/SALMETEROL 250-50 INHALER IH SCH (08:28)
[2018-10-26 09:21] VITALS: BP 159/85
== END 2018-10-26 10:05 | DRG 641 ==
LOC: ED 23:58 → SOUTH 10-25 02:16
PROVIDERS: ADMIT Family Medicine; ATTEND Family Medicine
DX: E87.1 Hypo-osmolality and hyponatremia (principal); F20.0 Paranoid schizophrenia; R91.1 Solitary pulmonary nodule; J98.4 Other disorders of lung; E03.9 Hypothyroidism, unspecified; E78.5 Hyperlipidemia, unspecified; K21.9 Gastro-esophageal reflux disease without esophagitis; F32.9 Major depressive disorder, single episode, unspecified; F41.9 Anxiety disorder, unspecified; I11.0 Hypertensive heart disease with heart failure; J44.9 Chronic obstructive pulmonary disease, unspecified; G62.9 Polyneuropathy, unspecified; M19.90 Unspecified osteoarthritis, unspecified site; I50.9 Heart failure, unspecified; Z79.82 Long term (current) use of aspirin; Z88.6 Allergy status to analgesic agent; Z88.1 Allergy status to other antibiotic agents; Z88.8 Allergy status to other drugs, medicaments and biological substances; Z79.899 Other long term (current) drug therapy; Z87.891 Personal history of nicotine dependence; Z79.51 Long term (current) use of inhaled steroids; Z79.890 Hormone replacement therapy
CPT/HCPCS: 36415; 71045; 71260; 80053; 81002; 82550; 82553; 83880; 83930; 84295; 84300; 84484; 85025; A9270; J1650; J1940; J7030; J7060; Q9967; 93005; 99231; 99238; S1016